=== PATIENT | female | born 1950 | race Caucasian/White ===

== ENCOUNTER 2022-03-20 01:15 | Inpatient (IN) | payer MEDICARE ==
[~2022-03-20] VITALS: Ht 158.8 cm; Wt 55.8 kg
[2022-03-20] MEDS ORDERED: REMEDY ESSENTIAL ZINC PASTE 113 GM TOP PRN (01:45)
[2022-03-20 02:04] VITALS: BP 132/67
[2022-03-20] MEDS ORDERED: ASPI81TA31 PO (02:31)
[2022-03-20] MEDS ORDERED: LEVO112T5 PO (02:31)
[2022-03-20] MEDS ORDERED: PRAM0.253 PO (02:31)
[2022-03-20] MEDS ORDERED: ZONI100C31 PO (02:31)
[2022-03-20] MEDS ORDERED: GABA-532 PO ×2 (02:31)
[2022-03-20] MEDS ORDERED: MINO100T PO (02:31)
[2022-03-20] MEDS ORDERED: GABA600T12 PO (02:31)
[2022-03-20] MEDS ORDERED: CYCL5TAB PO (02:31)
[2022-03-20] MEDS ORDERED: NEBI5TAB8 PO (02:31)
[2022-03-20] MEDS ORDERED: UMEC1BLS IH (02:31)
[2022-03-20] MEDS ORDERED: ALBU8.5H8 INH (02:31)
[2022-03-20] MEDS ORDERED: ACET-2154 PO (02:31)
[2022-03-20] MEDS ORDERED: POLY17PO4 PO (02:31)
[2022-03-20] MEDS ORDERED: MIRT-93 PO (02:31)
[2022-03-20] MEDS ORDERED: OXCA600T5 PO (02:31)
--- NOTE | 2022-03-20 04:11 | NUR ---
Admitted a 71 yr old female from [facility] with an admitting diagnosis of S/P left total knee arthroplasty (03/19/22) by Dr Garcia. AAOx4 Hx of osteoarthritis left knee, falls, COPD, HTN All needs attended. VSS. No acute distress noted. On 2L via nasal cannula, pulse ox 97%. Skin intact. Left knee dressing with britany wrap clean dry and intact with a left knee immobilizer. (+) good capillary refill toes warm to touch. Patient NWB on LLE x12 weeks. Denies any pain nor any discomfort. Thomas catheter intact draining yellow urine secondary to urinary retention. BM (03/17) Will monitor patient. Dr Seymour aware of patient's admission. Dr Anisha Chua also made aware of patient's admission for rehab. Fall precautions maintained. Call arellano within reach.
[2022-03-20 04:20] VITALS: BP 136/65
--- NOTE | 2022-03-20 06:13 | NUR ---
LLE with wound vac in placed, no drainage noted. Slept well throughout the night.
[2022-03-20] MEDS: OXYCODONE HCL 5 MG TABLET PO PRN (07:29)
[2022-03-20] MEDS ORDERED: NALOXONE HCL 0.4 MG/ML AMPUL IV PRN (07:30)
[2022-03-20 07:56] VITALS: BP 140/61
[2022-03-20] MEDS ORDERED: ALBUTEROL SULFATE 8 GM HFA.AER.AD INH PRN (08:00)
[2022-03-20] MEDS ORDERED: ALBUTEROL SULFATE 2.5 MG/3 ML NEBU NEB PRN (08:00)
[2022-03-20] MEDS ORDERED: CYCLOBENZAPRINE HCL 10 MG TABLET PO PRN (08:00)
[2022-03-20] MEDS ORDERED: UMECLIDINIUM XX SCH (08:15)
[2022-03-20] MEDS ORDERED: VILANTEROL XX SCH (08:15)
[2022-03-20] MEDS ORDERED: MINOCYCLINE PO SCH (09:00)
[2022-03-20] MEDS ORDERED: GABAPENTIN 300 MG CAPSULE PO SCH (09:00)
[2022-03-20] MEDS: OXCARBAZEPINE 300 MG TABLET PO SCH ×2 (09:39→17:36)
[2022-03-20] MEDS: MIRALAX 17 GM POWD.PACK PO SCH (09:40)
[2022-03-20] MEDS: ZONISAMIDE 100 MG CAPSULE PO SCH ×2 (11:16→17:36)
[2022-03-20] MEDS: ACETAMINOPHEN 325 MG TABLET PO SCH ×2 (13:16→22:00)
[2022-03-20] MEDS: OXYCODONE HCL 10 MG TAB.SR.12H PO SCH ×2 (13:16→22:00)
[2022-03-20] MEDS: GABAPENTIN 300 MG CAPSULE PO SCH ×2 (13:17→21:00)
[2022-03-20] MEDS: LEVOTHYROXINE SODIUM 112 MCG TABLET PO SCH (13:25)
--- NOTE | 2022-03-20 14:05 | NUR ---
INTERDISCIPLINARY TEAM CONFERENCE
[2022-03-20 16:25] VITALS: BP 145/84
[2022-03-20] MEDS: METOPROLOL TARTRATE 25 MG TABLET PO SCH (17:37)
[2022-03-20] MEDS: DOXYCYCLINE HYCLATE 100 MG TABLET PO SCH ×2 (17:55→22:00)
--- NOTE | 2022-03-20 18:57 | NUR ---
wound vac is in place. pain is well managed with pain medication, left knee dressing is intact. no acute distress noted
[2022-03-20 20:00] VITALS: BP 128/64
[2022-03-20] MEDS: PRAMIPEXOLE 0.25 MG TABLET PO SCH (21:00)
[2022-03-20] MEDS: ASPIRIN 81 MG TAB.CHEW PO SCH (21:00)
[2022-03-20] MEDS: MIRTAZAPINE 15 MG TABLET PO SCH (21:00)
[2022-03-21] MEDS: OXYCODONE HCL 5 MG TABLET PO PRN (01:52)
[2022-03-21 04:57] VITALS: BP 134/69
--- NOTE | 2022-03-21 06:00 | NUR ---
--PT IS A/OX4 WITH STABLE VS. PT HAS LEFT KNEE IMMOBILIZER INTACT WITH WOUND-VAC INTACT. PT C/O LEFT KNEE PAIN ALSO AT APPROX 0200. PT STATES RELIEF AFTER MED. 02 ON AT 2L/NC. PT VOIDING WELL AND HAD STOOLX1-PT IS ALSO INCONT. AM CARE GIVEN. PT ENDORSED TO PAYAM MULLER IN STABLED COND. JOS MULLER
[2022-03-21] MEDS: LEVOTHYROXINE SODIUM 112 MCG TABLET PO SCH (06:37)
[2022-03-21] MEDS: ACETAMINOPHEN 325 MG TABLET PO SCH ×3 (06:37→21:00)
[2022-03-21] MEDS: OXYCODONE HCL 10 MG TAB.SR.12H PO SCH ×3 (06:55→21:00)
[2022-03-21 07:01] LABS: HEMATOCRIT 33.8 % (31.2-41.9); MEAN CORPUSCULAR HEMOGLOBIN 28.3 uug (24.7-32.8); MEAN CORPUSCULAR VOLUME 87.6 fL (75.5-95.3); PLATELET COUNT (AUTO) 218 K/uL (179-408)
[2022-03-21 07:32] LABS: THYROID STIMULATING HORMONE 2.39 mIU/mL (0.358-3.740)
[2022-03-21 07:36] LABS: CREATININE 1.1 mg/dL (0.6-1.3); MAGNESIUM 1.8 mg/dL (1.8-2.4); PHOSPHOROUS 4.6 mg/dL (2.5-4.9); POTASSIUM 4.3 mmol/L (3.5-5.1)
[2022-03-21 07:44] VITALS: BP 125/60
[2022-03-21] MEDS: MIRALAX 17 GM POWD.PACK PO SCH (08:11)
[2022-03-21] MEDS: GABAPENTIN 300 MG CAPSULE PO SCH ×3 (08:11→20:03)
[2022-03-21] MEDS: ASPIRIN 81 MG TAB.CHEW PO SCH ×2 (08:11→20:02)
[2022-03-21] MEDS: ZONISAMIDE 100 MG CAPSULE PO SCH ×2 (08:11→16:08)
[2022-03-21] MEDS: DOXYCYCLINE HYCLATE 100 MG TABLET PO SCH ×2 (08:11→20:03)
[2022-03-21] MEDS: METOPROLOL TARTRATE 25 MG TABLET PO SCH ×2 (08:11→16:08)
[2022-03-21] MEDS: OXCARBAZEPINE 300 MG TABLET PO SCH ×2 (08:18→17:14)
--- NOTE | 2022-03-21 11:09 | NUR ---
WOUND CARE CONSULT: PT SEEN FOR SKIN ASSESSMENT AND NOTED TO HAVE LEFT LOWER LEG IMMOBILIZER WITH KARIE WRAPS AND SURGICAL DRESSINGS WELL PREVENA INCISIONAL WOUND VAC (NO DRAINAGE NOTED IN CANISTER), ALL PRESENT ON ADMISSION. RECOMMEND SURGICAL CONSULT. DR SANFORD NOTIFIED. PT STATES HAS APPT WITH HER SURGEON, DR GUDINO ON FRIDAY. DISCUSSED WITH SUPPLY CHAIN VICE PRESIDENT AND MSG LEFT FOR ADMINISTRATOR SOCIAL WELFAREGUSTABO HOLDER.
[2022-03-21 15:06] VITALS: BP 145/70
[2022-03-21 20:00] VITALS: BP 92/60
[2022-03-21] MEDS: PRAMIPEXOLE 0.25 MG TABLET PO SCH (20:03)
[2022-03-21] MEDS: MIRTAZAPINE 15 MG TABLET PO SCH (20:03)
[2022-03-21 20:44] VITALS: BP 105/65
[2022-03-22 04:00] VITALS: BP 152/70
[2022-03-22] MEDS: OXYCODONE HCL 10 MG TAB.SR.12H PO SCH ×3 (05:03→20:18)
[2022-03-22] MEDS: ACETAMINOPHEN 325 MG TABLET PO SCH ×3 (05:03→21:07)
[2022-03-22] MEDS: LEVOTHYROXINE SODIUM 112 MCG TABLET PO SCH (06:03)
[2022-03-22 07:37] VITALS: BP 143/71
[2022-03-22] MEDS: ZONISAMIDE 100 MG CAPSULE PO SCH ×2 (08:31→17:37)
[2022-03-22] MEDS: MIRALAX 17 GM POWD.PACK PO SCH (08:32)
[2022-03-22] MEDS: GABAPENTIN 300 MG CAPSULE PO SCH ×3 (08:32→20:17)
[2022-03-22] MEDS: DOXYCYCLINE HYCLATE 100 MG TABLET PO SCH ×2 (08:32→20:47)
[2022-03-22] MEDS: ASPIRIN 81 MG TAB.CHEW PO SCH ×2 (08:32→20:17)
[2022-03-22] MEDS: METOPROLOL TARTRATE 25 MG TABLET PO SCH ×2 (08:34→17:35)
[2022-03-22] MEDS: OXCARBAZEPINE 300 MG TABLET PO SCH ×2 (08:36→17:37)
[2022-03-22] MEDS: OXYCODONE HCL 5 MG TABLET PO PRN (09:21)
[2022-03-22] MEDS ORDERED: NALOXONE HCL 0.4 MG/ML AMPUL IV PRN (15:00)
[2022-03-22 15:13] VITALS: BP 106/61
[2022-03-22 20:00] VITALS: BP 141/62
[2022-03-22] MEDS: PRAMIPEXOLE 0.25 MG TABLET PO SCH (20:18)
[2022-03-22] MEDS: MIRTAZAPINE 15 MG TABLET PO SCH (20:18)
--- NOTE | 2022-03-23 03:50 | NUR ---
Awake alert and oriented x4 All needs attended. Patient had a left total knee revision where dressing clean dry and intact. Patient with wound vac intact, no drainage noted, scant amount noted on the canister. VSS. Tolerated po meds well. Kept comfortable. Siderails up for safety. Left knee dressing clean dry and intact. Incontinent of bowel and bladder. Kept clean and dry. Fall precautions maintained.
[2022-03-23 04:00] VITALS: BP 166/80
[2022-03-23] MEDS: ACETAMINOPHEN 325 MG TABLET PO SCH ×3 (05:13→21:20)
[2022-03-23] MEDS: LEVOTHYROXINE SODIUM 112 MCG TABLET PO SCH (06:20)
[2022-03-23] MEDS: DOXYCYCLINE HYCLATE 100 MG TABLET PO SCH ×2 (08:20→20:23)
[2022-03-23] MEDS: OXYCODONE HCL 10 MG TAB.SR.12H PO SCH ×2 (08:20→20:24)
[2022-03-23] MEDS: ZONISAMIDE 100 MG CAPSULE PO SCH ×2 (08:20→16:25)
[2022-03-23] MEDS: GABAPENTIN 300 MG CAPSULE PO SCH ×3 (08:20→20:24)
[2022-03-23] MEDS: ASPIRIN 81 MG TAB.CHEW PO SCH ×2 (08:20→20:23)
[2022-03-23] MEDS: METOPROLOL TARTRATE 25 MG TABLET PO SCH ×2 (08:24→16:25)
[2022-03-23] MEDS: FLUTICASONE/VILANTEROL 1 EACH BLST.W.DEV INH SCH (08:25)
[2022-03-23] MEDS: MIRALAX 17 GM POWD.PACK PO SCH (08:25)
[2022-03-23] MEDS: OXCARBAZEPINE 300 MG TABLET PO SCH ×2 (08:25→16:28)
[2022-03-23 08:30] VITALS: BP 155/81
--- NOTE | 2022-03-23 10:16 | NUR ---
INDIVIDUALIZED PLAN OF CARE
[2022-03-23 15:05] VITALS: BP 158/78
[2022-03-23] MEDS: ENSURE ENLIVE (VAN) 240 ML LIQUID PO SCH (16:26)
[2022-03-23] MEDS: ARGININE/GLUTAMINE/CALCIUM BMB 1 EACH POWD.PACK PO SCH (16:26)
[2022-03-23 20:00] VITALS: BP 138/67
[2022-03-23] MEDS: PRAMIPEXOLE 0.25 MG TABLET PO SCH (20:23)
[2022-03-23] MEDS: MIRTAZAPINE 15 MG TABLET PO SCH (20:24)
--- NOTE | 2022-03-24 03:54 | NUR ---
Condition unchanged. AAOx4 Needs attended. VSS Left knee dressing intact with a knee immobilizer with wound vac noted. No acute distress noted. Will monitor patient. Fall precautions maintained. Siderails up for safety.
[2022-03-24 04:00] VITALS: BP 164/85
[2022-03-24] MEDS: ACETAMINOPHEN 325 MG TABLET PO SCH ×3 (05:30→21:59)
[2022-03-24] MEDS: LEVOTHYROXINE SODIUM 112 MCG TABLET PO SCH (06:08)
[2022-03-24 08:00] VITALS: BP 160/76
[2022-03-24] MEDS: OXYCODONE HCL 10 MG TAB.SR.12H PO SCH ×3 (08:14→22:00)
[2022-03-24] MEDS: ASPIRIN 81 MG TAB.CHEW PO SCH ×2 (08:34→21:59)
[2022-03-24] MEDS: GABAPENTIN 300 MG CAPSULE PO SCH ×3 (08:34→22:07)
[2022-03-24] MEDS: DOXYCYCLINE HYCLATE 100 MG TABLET PO SCH ×2 (08:35→21:59)
[2022-03-24] MEDS: OXCARBAZEPINE 300 MG TABLET PO SCH ×2 (08:35→16:18)
[2022-03-24] MEDS: ZONISAMIDE 100 MG CAPSULE PO SCH ×2 (08:35→16:18)
[2022-03-24] MEDS: METOPROLOL TARTRATE 25 MG TABLET PO SCH ×2 (08:36→16:18)
[2022-03-24] MEDS: ENSURE ENLIVE (VAN) 240 ML LIQUID PO SCH ×2 (08:36→17:09)
[2022-03-24] MEDS: ARGININE/GLUTAMINE/CALCIUM BMB 1 EACH POWD.PACK PO SCH ×2 (08:36→17:09)
[2022-03-24] MEDS: FLUTICASONE/VILANTEROL 1 EACH BLST.W.DEV INH SCH (08:42)
[2022-03-24] MEDS: MIRALAX 17 GM POWD.PACK PO SCH (08:43)
[2022-03-24] MEDS: OXYCODONE HCL 5 MG TABLET PO PRN (14:02)
[2022-03-24 15:55] VITALS: BP 121/68
[2022-03-24 20:00] VITALS: BP 119/72
[2022-03-24] MEDS: MIRTAZAPINE 15 MG TABLET PO SCH (21:59)
[2022-03-24] MEDS: PRAMIPEXOLE 0.25 MG TABLET PO SCH (21:59)
[2022-03-25 04:00] VITALS: BP 125/70
--- NOTE | 2022-03-25 06:00 | NUR ---
--PT CONT WITH STABLE VS. PT HAS BEEN SLEEPING OFF AND ON. PT HAS BEEN A/OX4. PT HAS LEFT KNEE BRACE INTACT WITH WOUND-VAC. GEN COND HAS BEEN STABLE. PT DENIES ANY PAIN THIS AM. PT ENDORSED TO YOHANA BARCENAS. JOS MULLER
[2022-03-25] MEDS: LEVOTHYROXINE SODIUM 112 MCG TABLET PO SCH ×2 (06:34→08:36)
[2022-03-25] MEDS: ACETAMINOPHEN 325 MG TABLET PO SCH ×3 (06:34→22:02)
[2022-03-25 07:58] VITALS: BP 139/71
[2022-03-25] MEDS: ASPIRIN 81 MG TAB.CHEW PO SCH ×2 (08:35→20:46)
[2022-03-25] MEDS: ZONISAMIDE 100 MG CAPSULE PO SCH ×2 (08:36→17:15)
[2022-03-25] MEDS: DOXYCYCLINE HYCLATE 100 MG TABLET PO SCH ×2 (08:36→21:04)
[2022-03-25] MEDS: GABAPENTIN 300 MG CAPSULE PO SCH ×3 (08:37→20:52)
[2022-03-25] MEDS: OXYCODONE HCL 10 MG TAB.SR.12H PO SCH ×2 (08:46→20:55)
[2022-03-25] MEDS: OXCARBAZEPINE 300 MG TABLET PO SCH ×2 (08:47→17:15)
[2022-03-25] MEDS: ENSURE ENLIVE (VAN) 240 ML LIQUID PO SCH ×2 (08:51→17:16)
[2022-03-25] MEDS: ARGININE/GLUTAMINE/CALCIUM BMB 1 EACH POWD.PACK PO SCH ×2 (08:53→17:17)
[2022-03-25] MEDS: MIRALAX 17 GM POWD.PACK PO SCH (08:53)
[2022-03-25] MEDS: FLUTICASONE/VILANTEROL 1 EACH BLST.W.DEV INH SCH (08:53)
[2022-03-25] MEDS: METOPROLOL TARTRATE 25 MG TABLET PO SCH ×2 (09:00→17:23)
--- NOTE | 2022-03-25 13:57 | NUR ---
71 year old female. She is alert and oriented x4, verbal and able to make her needs known. No apparent distress. She is cooperative with limitation of movement. Patient came in for weakness s/p knee revision. On 03/18/22 patient had a total knee replacement. She is full code on 2 gram sodium. Patient is incontinence. Skin is intact and she is able to ambulate with PT. Pills are being taken whole at times mixed with apple sauce. She did refuse to take her oxycontin, requsted for Tylenol instead. Patient has appointment scheduled for tomorrow.No new concerns reported. Will continue to monitor.
[2022-03-25 16:07] VITALS: BP 144/77
[2022-03-25 20:00] VITALS: BP 116/64
[2022-03-25] MEDS: PRAMIPEXOLE 0.25 MG TABLET PO SCH (20:52)
[2022-03-25] MEDS: MIRTAZAPINE 15 MG TABLET PO SCH (20:53)
[2022-03-26 04:00] VITALS: BP 105/69
[2022-03-26] MEDS: ACETAMINOPHEN 325 MG TABLET PO SCH ×3 (06:00→21:39)
[2022-03-26 08:00] VITALS: BP 105/63
[2022-03-26] MEDS: ENSURE ENLIVE (VAN) 240 ML LIQUID PO SCH ×2 (08:06→17:48)
[2022-03-26] MEDS: ZONISAMIDE 100 MG CAPSULE PO SCH ×2 (08:27→17:29)
[2022-03-26] MEDS: ASPIRIN 81 MG TAB.CHEW PO SCH ×2 (08:27→20:25)
[2022-03-26] MEDS: DOXYCYCLINE HYCLATE 100 MG TABLET PO SCH ×2 (08:28→20:25)
[2022-03-26] MEDS: GABAPENTIN 300 MG CAPSULE PO SCH ×3 (08:28→20:25)
[2022-03-26] MEDS: METOPROLOL TARTRATE 25 MG TABLET PO SCH ×2 (08:28→17:34)
[2022-03-26] MEDS: OXCARBAZEPINE 300 MG TABLET PO SCH ×2 (08:28→17:34)
[2022-03-26] MEDS: OXYCODONE HCL 10 MG TAB.SR.12H PO SCH (08:33)
--- NOTE | 2022-03-26 08:35 | NUR ---
MICHELLE RN & CHARLY RN GAVE PATIENT HER ROUTINE & SCHEDULED MEDICATIONS PER DOCTOR'S ORDER. PT. REFUSED OXYCONTIN SHE WANTED TO BE MORE ALERT FOR HER DOCTOR'S APPOINTMENT TODAY. EMT/AMBULANCE PICKED UP PATIENT & TOOK HER TO HER FOLLOW-UP VISIT WITH HER DOCTOR. PT. LEFT IN STABLE CONDITION. REPORT GIVEN TO EMT.
[2022-03-26] MEDS: MIRALAX 17 GM POWD.PACK PO SCH (09:00)
[2022-03-26] MEDS: ARGININE/GLUTAMINE/CALCIUM BMB 1 EACH POWD.PACK PO SCH ×2 (09:07→17:48)
[2022-03-26] MEDS: FLUTICASONE/VILANTEROL 1 EACH BLST.W.DEV INH SCH (09:27)
--- NOTE | 2022-03-26 11:10 | NUR ---
PATIENT RETURNED BACK TO ROOM. PT. IN STABLE CONDITION. PT WILL CONTINUE PLAN OF CARE.
[2022-03-26] MEDS: OXYCODONE HCL 5 MG TABLET PO PRN ×2 (13:46→20:41)
--- NOTE | 2022-03-26 19:28 | NUR ---
REPORT GIVEN TO TILE DECORATOR RN. RN PASSED DOWN DR. ADAMSON'S REQUESTS AND PRESCRIPTION PLAN LEFT IN PATIENT CHART. PER DR. ADAMSON'S: HE WOULD LIKE: DAILY DRESSING CHANGES, WEIGHT BEARING TOLERATED, CONTINUE PT PLAN SCHEDULED, AND REQUEST THAT CLIENT RETURN BACK TO CLINIC WITHIN 2 WEEKS WITH NEW X-RAYS. PLAN PASSED DOWN TO TILE DECORATOR RN.
[2022-03-26 20:00] VITALS: BP 116/58
[2022-03-26] MEDS: PRAMIPEXOLE 0.25 MG TABLET PO SCH (20:24)
[2022-03-26] MEDS: MIRTAZAPINE 15 MG TABLET PO SCH (20:25)
[2022-03-26] MEDS: REMEDY ESSENTIAL ZINC PASTE 113 GM TOP SCH (20:28)
--- NOTE | 2022-03-27 03:59 | NUR ---
AAOx4 All needs attended. VSS No acute distress noted. Fall precautions maintained. Siderails up for safety. Denies any pain nor any discomfort. Left knee dressing clean dry and intact. Left leg immobilizer intact. Wound vac d/c'ed. Kept comfortable.
[2022-03-27 04:00] VITALS: BP 124/62
[2022-03-27] MEDS: OXYCODONE HCL 5 MG TABLET PO PRN ×3 (04:14→20:30)
[2022-03-27] MEDS: ACETAMINOPHEN 325 MG TABLET PO SCH ×3 (05:24→21:06)
[2022-03-27] MEDS: LEVOTHYROXINE SODIUM 112 MCG TABLET PO SCH (06:02)
[2022-03-27 08:00] VITALS: BP 121/69
[2022-03-27] MEDS: ASPIRIN 81 MG TAB.CHEW PO SCH ×2 (08:37→20:24)
[2022-03-27] MEDS: ENSURE ENLIVE (VAN) 240 ML LIQUID PO SCH ×2 (08:37→17:39)
[2022-03-27] MEDS: GABAPENTIN 300 MG CAPSULE PO SCH ×3 (08:38→20:24)
[2022-03-27] MEDS: METOPROLOL TARTRATE 25 MG TABLET PO SCH ×2 (08:38→16:36)
[2022-03-27] MEDS: DOXYCYCLINE HYCLATE 100 MG TABLET PO SCH ×2 (08:38→20:30)
[2022-03-27] MEDS: OXCARBAZEPINE 300 MG TABLET PO SCH ×2 (08:39→17:39)
[2022-03-27] MEDS: MIRALAX 17 GM POWD.PACK PO SCH (08:39)
[2022-03-27] MEDS: FLUTICASONE/VILANTEROL 1 EACH BLST.W.DEV INH SCH (08:41)
[2022-03-27] MEDS: REMEDY ESSENTIAL ZINC PASTE 113 GM TOP SCH ×2 (09:18→20:26)
[2022-03-27] MEDS: ZONISAMIDE 100 MG CAPSULE PO SCH ×2 (09:18→16:34)
[2022-03-27] MEDS: ARGININE/GLUTAMINE/CALCIUM BMB 1 EACH POWD.PACK PO SCH ×2 (09:19→17:39)
--- NOTE | 2022-03-27 14:40 | NUR ---
INDIVIDUALIZED PLAN OF CARE
--- NOTE | 2022-03-27 14:44 | NUR ---
0730-Rec'd patient in bed, awake, alert and verbally communicative, denies any discomfort at this time; no respiratory distress noted. Patient in stable conditions, no seizure episodes noted. All safety measures in place and call light within reach. 0900-Patient still eating at this time, no swallowing problems noted. Scheduled/due medications administered as ordered with no ASE, oral fluids taken well. 1100-Patient brought to my attention her dentures are missing since three days ago and that a search was conducted but unsuccessful at finding them. Patient requested to speak to SW to report her missing dentures., Looked for dentures but unable to locate them., Spoke to SW (Estela) and immediately came to address patient's concerns regarding her dentures. 14:00-Patient OOB, picked up by rehab persennel and taken to therapy.
--- NOTE | 2022-03-27 14:46 | NUR ---
Clinical SW Note: Pt verbalized to this technical report writer that she woke up the morning of Friday and found that her bottom dentures are missing from the box. Pt reported that she placed them in the box the night before. Pt stated she advised nursing, the cleaning crew and a knitting supervisor. This SW reported pt's statement to the pt's nurse today, Sasha, the nursing knitting supervisor, Harmony and corrections caseworker Kaushal. Staff is advised and will continue to follow-up with pt. Kaushal stated he will speak to the pt and follow-up. Pt is informed.
--- NOTE | 2022-03-27 15:07 | NUR ---
INTERDISCIPLINARY TEAM CONFERENCE
[2022-03-27 16:00] VITALS: BP 130/60
[2022-03-27 20:00] VITALS: BP 129/67
[2022-03-27] MEDS: PRAMIPEXOLE 0.25 MG TABLET PO SCH (20:23)
[2022-03-27] MEDS: MIRTAZAPINE 15 MG TABLET PO SCH (20:24)
[2022-03-28 04:00] VITALS: BP 116/56
--- NOTE | 2022-03-28 04:24 | NUR ---
awake alert and oriented x4 All needs attended. VSS No acute distress noted. Tolerated all po meds. Medicated for pain with relief noted. Incontinent of bowel and bladder. Kept clean and dry. Will monitor patient.
[2022-03-28] MEDS: ACETAMINOPHEN 325 MG TABLET PO SCH ×3 (05:26→22:01)
[2022-03-28] MEDS: LEVOTHYROXINE SODIUM 112 MCG TABLET PO SCH (06:12)
[2022-03-28 07:51] VITALS: BP 97/63
[2022-03-28] MEDS: DOXYCYCLINE HYCLATE 100 MG TABLET PO SCH ×2 (08:34→21:13)
[2022-03-28] MEDS: ZONISAMIDE 100 MG CAPSULE PO SCH ×2 (08:35→16:33)
[2022-03-28] MEDS: METOPROLOL TARTRATE 25 MG TABLET PO SCH ×2 (08:35→08:38)
[2022-03-28] MEDS: MIRALAX 17 GM POWD.PACK PO SCH (08:36)
[2022-03-28] MEDS: ENSURE ENLIVE (VAN) 240 ML LIQUID PO SCH ×2 (08:36→17:04)
[2022-03-28] MEDS: GABAPENTIN 300 MG CAPSULE PO SCH ×3 (08:36→21:12)
[2022-03-28] MEDS: ASPIRIN 81 MG TAB.CHEW PO SCH ×2 (08:36→21:13)
[2022-03-28] MEDS: ARGININE/GLUTAMINE/CALCIUM BMB 1 EACH POWD.PACK PO SCH ×2 (08:37→17:05)
[2022-03-28] MEDS: FLUTICASONE/VILANTEROL 1 EACH BLST.W.DEV INH SCH (08:37)
[2022-03-28] MEDS: OXCARBAZEPINE 300 MG TABLET PO SCH ×2 (09:06→16:41)
[2022-03-28] MEDS: REMEDY ESSENTIAL ZINC PASTE 113 GM TOP SCH ×2 (09:07→21:14)
[2022-03-28] MEDS: OXYCODONE HCL 5 MG TABLET PO PRN (10:02)
--- NOTE | 2022-03-28 11:48 | NUR ---
WOUND CARE FOLLOW UP: PT SEEN FOR EVALUATION OF LEFT LEG INCISION AND OPEN AREA TO LEFT KNEE, PRESENT ON ADMISSION. PT PREVIOUSLY HAD NONREMOVABLE INCISIONAL PREVENA WOUND VAC. VAC WAS DISCONTINUED BY ORTHO SURGEON ON 03/26. THERE IS OPEN AREA TO LEFT KNEE WHICH MEASURES 8CM X5CM X UTD DEPTH WHICH IS RED/PINK WITH AREA OF BROWN NECROTIC TISSUE, NO ODOR. RECOMMEND CONTINUE TO PROTECT WITH XEROFORM DSG AND PROTECT INCISIONS WITH ABD PADS AND KERLIX. KNEE IMMOBILIZER WAS PLACED BACK ON AFTER DRESSING CHANGE. RECOMMEND SURGICAL FOLLOW UP. IN AGREEMENT WITH PLAN OF CARE.
[2022-03-28 15:30] VITALS: BP 124/63
--- NOTE | 2022-03-28 17:39 | NUR ---
Obtained orders from Dr. Elina Jaimes to upgrade diet from 2GM sodium to regular diet, dietary/kitchen aware.
--- NOTE | 2022-03-28 17:49 | NUR ---
Followed up on orders given post op Appt with Dr. Garcia on 03/26/[address] Garcia @ 0900 APA pick up attendant @ 8:15AM. [id number] [address] PH: and as follows: -Daily dressing changes to left hip surgery site. -WBAT with LLE -Cont with PT services -RTC 2 weeks with new x-rays of left hip. All of the above carried out, except X-Rays due to pending clarification of specific date follow up apt.
--- NOTE | 2022-03-28 18:37 | NUR ---
1700-METOPROLOL TARTRATE 25MG, NOT ADMINISTERED DUE TO LOW BLOOD PRESSURE. BP96/55, P61.
[2022-03-28 20:00] VITALS: BP_SYST 104; BP_SYST 128; BP_DIAS 55; BP_DIAS 63
[2022-03-28] MEDS: MIRTAZAPINE 15 MG TABLET PO SCH (21:13)
[2022-03-28] MEDS: PRAMIPEXOLE 0.25 MG TABLET PO SCH (21:14)
[2022-03-29] MEDS: OXYCODONE HCL 5 MG TABLET PO PRN ×4 (03:09→23:20)
[2022-03-29 04:00] VITALS: BP 120/67
[2022-03-29] MEDS: LEVOTHYROXINE SODIUM 112 MCG TABLET PO SCH ×2 (06:00→09:12)
[2022-03-29] MEDS: ACETAMINOPHEN 325 MG TABLET PO SCH ×3 (06:00→22:05)
[2022-03-29 08:08] VITALS: BP 142/69
[2022-03-29] MEDS: OXCARBAZEPINE 300 MG TABLET PO SCH ×2 (09:10→16:45)
[2022-03-29] MEDS: MIRALAX 17 GM POWD.PACK PO SCH (09:10)
[2022-03-29] MEDS: ASPIRIN 81 MG TAB.CHEW PO SCH ×2 (09:11→21:00)
[2022-03-29] MEDS: ZONISAMIDE 100 MG CAPSULE PO SCH ×2 (09:11→16:42)
[2022-03-29] MEDS: GABAPENTIN 300 MG CAPSULE PO SCH ×3 (09:12→21:00)
[2022-03-29] MEDS: REMEDY ESSENTIAL ZINC PASTE 113 GM TOP SCH ×2 (09:13→21:00)
[2022-03-29] MEDS: ARGININE/GLUTAMINE/CALCIUM BMB 1 EACH POWD.PACK PO SCH ×2 (09:13→16:42)
[2022-03-29] MEDS: FLUTICASONE/VILANTEROL 1 EACH BLST.W.DEV INH SCH (09:14)
[2022-03-29] MEDS: ENSURE ENLIVE (VAN) 240 ML LIQUID PO SCH (09:14)
[2022-03-29] MEDS: METOPROLOL TARTRATE 25 MG TABLET PO SCH ×2 (09:15→16:44)
[2022-03-29] MEDS: DOXYCYCLINE HYCLATE 100 MG TABLET PO SCH ×2 (09:25→21:00)
[2022-03-29 14:59] VITALS: BP 127/66
--- NOTE | 2022-03-29 15:13 | NUR ---
Received patient comfortably awake in hospital bed. She is lying in supine position with HOB 35 degrees angle. She is A&O x4, verbal, able to make needs known. As of during the Am pain was denied. Normal air movement with no apparent distress noted. She is calm and relaxed at this time. Dressing on left leg changed. patient tolerated well with minimal discomfort. Patient is full code on regular diet. She came in for S/P left total Knee Arthroplasty. Patient later did complain of pain. Oxycotin given with relief. She was able to walk with PT twice today. No new concerns reported. Sn will continue to monitor patient on same plan of care.
[2022-03-29 19:55] VITALS: BP 121/65
[2022-03-29] MEDS: MIRTAZAPINE 15 MG TABLET PO SCH (21:00)
[2022-03-29] MEDS: PRAMIPEXOLE 0.25 MG TABLET PO SCH (21:00)
[2022-03-30 04:00] VITALS: BP 118/69
[2022-03-30] MEDS: ACETAMINOPHEN 325 MG TABLET PO SCH ×3 (06:00→21:42)
--- NOTE | 2022-03-30 06:00 | NUR ---
--PT REMAINS A/OX4. VS CONT. TO BE STABLE. LEFT LEG DRSG IS D/I. PT VOIDING WELL VIA BEDPAN. PT REQUESTED PAIN MED X1. PT MED WITH OXY. PAIN MED-RATED PAIN AT 810. PT STATES RELIEF AFTER MED. GEN. COND. HAS BEEN STABLE. PT ENDORSED TO PAYAM ARGUELLO RN
[2022-03-30] MEDS: DOXYCYCLINE HYCLATE 100 MG TABLET PO SCH ×2 (08:33→20:34)
[2022-03-30] MEDS: ASPIRIN 81 MG TAB.CHEW PO SCH ×2 (08:33→20:34)
[2022-03-30] MEDS: GABAPENTIN 300 MG CAPSULE PO SCH ×3 (08:36→20:34)
[2022-03-30] MEDS: FLUTICASONE/VILANTEROL 1 EACH BLST.W.DEV INH SCH (08:36)
[2022-03-30] MEDS: OXCARBAZEPINE 300 MG TABLET PO SCH ×2 (08:37→17:10)
[2022-03-30] MEDS: REMEDY ESSENTIAL ZINC PASTE 113 GM TOP SCH ×2 (08:38→20:35)
[2022-03-30] MEDS: METOPROLOL TARTRATE 25 MG TABLET PO SCH ×2 (08:38→17:05)
[2022-03-30] MEDS: ENSURE ENLIVE (VAN) 240 ML LIQUID PO SCH (08:39)
[2022-03-30] MEDS: ARGININE/GLUTAMINE/CALCIUM BMB 1 EACH POWD.PACK PO SCH ×2 (08:39→17:05)
[2022-03-30 08:41] VITALS: BP 127/63
[2022-03-30] MEDS: ZONISAMIDE 100 MG CAPSULE PO SCH ×2 (08:45→17:04)
[2022-03-30] MEDS: MIRALAX 17 GM POWD.PACK PO SCH (08:45)
[2022-03-30] MEDS: OXYCODONE HCL 5 MG TABLET PO PRN ×3 (08:56→20:33)
[2022-03-30 16:00] VITALS: BP 133/61
--- NOTE | 2022-03-30 17:20 | NUR ---
Patient is comfortable at this time. She is alert and oriented x4, verbal, able to make needs known. Patient has been complaining of pain, oxycotin and Tylenol given. She has able to take pills whole with no discomfort. Normal air movement with no apparent distress. Respiration are even unlabored. She uses the bedpan. No more wound vac. Dressing change, no discomfort. Walks with assist with the walker. All comfort measures and pain management attended to according. She is comfortable, will continue to monitor
[2022-03-30 20:30] VITALS: BP 117/62
[2022-03-30] MEDS: PRAMIPEXOLE 0.25 MG TABLET PO SCH (20:34)
[2022-03-30] MEDS: MIRTAZAPINE 15 MG TABLET PO SCH (20:34)
[2022-03-31] MEDS: OXYCODONE HCL 5 MG TABLET PO PRN ×3 (01:55→20:58)
[2022-03-31 04:40] VITALS: BP 129/60
[2022-03-31] MEDS: ACETAMINOPHEN 325 MG TABLET PO SCH ×3 (05:45→21:10)
[2022-03-31] MEDS: LEVOTHYROXINE SODIUM 112 MCG TABLET PO SCH (06:06)
[2022-03-31 08:00] VITALS: BP 117/57
[2022-03-31] MEDS: DOXYCYCLINE HYCLATE 100 MG TABLET PO SCH ×2 (09:40→20:56)
[2022-03-31] MEDS: ZONISAMIDE 100 MG CAPSULE PO SCH ×2 (09:40→17:08)
[2022-03-31] MEDS: ASPIRIN 81 MG TAB.CHEW PO SCH ×2 (09:40→20:56)
[2022-03-31] MEDS: MIRALAX 17 GM POWD.PACK PO SCH (09:40)
[2022-03-31] MEDS: OXCARBAZEPINE 300 MG TABLET PO SCH ×2 (09:40→17:09)
[2022-03-31] MEDS: METOPROLOL TARTRATE 25 MG TABLET PO SCH ×2 (09:40→17:09)
[2022-03-31] MEDS: FLUTICASONE/VILANTEROL 1 EACH BLST.W.DEV INH SCH (09:41)
[2022-03-31] MEDS: ARGININE/GLUTAMINE/CALCIUM BMB 1 EACH POWD.PACK PO SCH ×2 (09:41→17:09)
[2022-03-31] MEDS: REMEDY ESSENTIAL ZINC PASTE 113 GM TOP SCH ×2 (09:41→21:06)
[2022-03-31] MEDS: ENSURE ENLIVE (VAN) 240 ML LIQUID PO SCH (09:41)
[2022-03-31] MEDS: GABAPENTIN 300 MG CAPSULE PO SCH ×3 (09:51→20:57)
[2022-03-31 15:42] VITALS: BP 132/71
--- NOTE | 2022-03-31 17:38 | NUR ---
spoke with communication center operator at md burks's office want to send pics of the leg noted with tissue sloughing and not healing well. told me to call the office tomorrow and send pics then.
[2022-03-31 20:00] VITALS: BP 129/54
[2022-03-31] MEDS: PRAMIPEXOLE 0.25 MG TABLET PO SCH (20:56)
[2022-03-31] MEDS: MIRTAZAPINE 15 MG TABLET PO SCH (20:57)
[2022-04-01] VITALS: BP 120/64
[2022-04-01] MEDS: OXYCODONE HCL 5 MG TABLET PO PRN ×3 (02:29→20:45)
[2022-04-01 04:00] VITALS: BP 126/59
[2022-04-01] MEDS: ACETAMINOPHEN 325 MG TABLET PO SCH ×3 (05:58→22:10)
[2022-04-01] MEDS: LEVOTHYROXINE SODIUM 112 MCG TABLET PO SCH ×2 (06:14→08:37)
--- NOTE | 2022-04-01 07:16 | NUR ---
SHIFT NOTE: RECEIVED REPORT FROM AM NURSE SHARI SEND PICTURES TO DR. ADAMSON TO ASSESS LEG FOR WOUND HEALING AND SLOUGH. PT WAS GIVEN OXYIR 3 TIMES DURING SHIFT FOR LT LEG PAIN FROM WOUND NO SIGNS OF RESPIRATORY DISTRESS. PT TOLERATED MEDICATION WITHOUT ADVERSE REACTION. ALSO ASSISTED PATIENT TO RESTROOM TOLERATED WELL GAIT IS STEADY AN SLOW.
[2022-04-01 07:36] VITALS: BP 138/61
[2022-04-01] MEDS: ASPIRIN 81 MG TAB.CHEW PO SCH ×2 (08:36→20:43)
[2022-04-01] MEDS: DOXYCYCLINE HYCLATE 100 MG TABLET PO SCH ×2 (08:37→20:43)
[2022-04-01] MEDS: GABAPENTIN 300 MG CAPSULE PO SCH ×3 (08:37→20:43)
[2022-04-01] MEDS: ZONISAMIDE 100 MG CAPSULE PO SCH ×2 (08:37→17:09)
[2022-04-01] MEDS: OXCARBAZEPINE 300 MG TABLET PO SCH ×2 (08:38→17:01)
[2022-04-01] MEDS: MIRALAX 17 GM POWD.PACK PO SCH (08:38)
[2022-04-01] MEDS: METOPROLOL TARTRATE 25 MG TABLET PO SCH ×2 (08:38→17:07)
[2022-04-01] MEDS: ARGININE/GLUTAMINE/CALCIUM BMB 1 EACH POWD.PACK PO SCH ×2 (08:39→17:03)
[2022-04-01] MEDS: REMEDY ESSENTIAL ZINC PASTE 113 GM TOP SCH ×2 (08:39→20:43)
[2022-04-01] MEDS: FLUTICASONE/VILANTEROL 1 EACH BLST.W.DEV INH SCH (08:41)
[2022-04-01] MEDS: ENSURE ENLIVE (VAN) 240 ML LIQUID PO SCH (08:44)
[2022-04-01 16:33] VITALS: BP 127/66
--- NOTE | 2022-04-01 17:25 | NUR ---
Pt received awake in bed. She A&Ox4, verbal and able to make needs known. She is currently stable. She expressed pain on wound site. Pictures taken of wound, placed in patient chart. Patient has an appointment tomorrow @ 4pm with Dr. Garcia regarding follow up on wound. Tylenol given once during my shift and no Oxycotin given. Wound dressing changed, cleanse with N/S pat dry and applied dried gauze dressing and wrap. Patient tolerated well. No new concerns reported. She is breathing normal on room air with no apparent distress noted. Calm and relaxed. Sn will continue to monitor on same plan of care.
[2022-04-01] MEDS: MIRTAZAPINE 15 MG TABLET PO SCH (20:43)
[2022-04-01] MEDS: PRAMIPEXOLE 0.25 MG TABLET PO SCH (20:43)
[2022-04-02] MEDS: OXYCODONE HCL 5 MG TABLET PO PRN ×4 (02:00→20:49)
[2022-04-02 04:00] VITALS: BP 120/58
[2022-04-02] MEDS: LEVOTHYROXINE SODIUM 112 MCG TABLET PO SCH (06:38)
[2022-04-02] MEDS: ACETAMINOPHEN 325 MG TABLET PO SCH ×3 (06:38→21:12)
--- NOTE | 2022-04-02 07:23 | NUR ---
SHIFT NOTE; RECEIVED REPORT FROM AM NURSE NARINDER PT IS ALERT AND ORIENTED X4 DRESSING REMOVED BY NURSE APPLIED DRESSING PT HAS DRAINAGE COMING FROM [employer] ENGINEER PT TODAY AT [address] ADAMSON(SURGEON FOR FOLLOW-UP [id number] [address] IN [place], [place] PHONE IS [phone]. PT WAS GIVEN PAIN MEDICATION TWICE DURING SHIFT LAST DOSE GIVEN AT 0300 AND AFTERWARD PT SLEPLT REST OF NIGHT. WILL ENDORSE TO AM NURSE.
[2022-04-02 07:45] VITALS: BP 123/64
[2022-04-02] MEDS: MIRALAX 17 GM POWD.PACK PO SCH (09:00)
[2022-04-02] MEDS: ASPIRIN 81 MG TAB.CHEW PO SCH ×2 (09:50→20:58)
[2022-04-02] MEDS: GABAPENTIN 300 MG CAPSULE PO SCH ×3 (09:50→20:49)
[2022-04-02] MEDS: ZONISAMIDE 100 MG CAPSULE PO SCH ×2 (09:50→17:45)
[2022-04-02] MEDS: DOXYCYCLINE HYCLATE 100 MG TABLET PO SCH ×2 (09:50→20:48)
[2022-04-02] MEDS: METOPROLOL TARTRATE 25 MG TABLET PO SCH ×2 (09:51→17:00)
[2022-04-02] MEDS: ENSURE ENLIVE (VAN) 240 ML LIQUID PO SCH (09:51)
[2022-04-02] MEDS: ARGININE/GLUTAMINE/CALCIUM BMB 1 EACH POWD.PACK PO SCH ×2 (09:51→17:54)
[2022-04-02] MEDS: FLUTICASONE/VILANTEROL 1 EACH BLST.W.DEV INH SCH (09:56)
[2022-04-02] MEDS: OXCARBAZEPINE 300 MG TABLET PO SCH ×2 (09:56→17:45)
[2022-04-02] MEDS: REMEDY ESSENTIAL ZINC PASTE 113 GM TOP SCH ×2 (09:57→20:57)
--- NOTE | 2022-04-02 15:40 | NUR ---
Patient picked up by [facility] ambulance for follow up appointment with Dr. Garcia (surgeon). Patient denies any pain or discomfort at this time. Vital signs stable.
--- NOTE | 2022-04-02 17:30 | NUR ---
Patient back from appointment from Dr. Garcia with no new order.
--- NOTE | 2022-04-02 18:00 | NUR ---
Per patient she received a call from Dr. Garcia's office and that they scheduled her for appointment on Friday04/05/22 at 10 AM. manager social media made aware.
[2022-04-02 20:00] VITALS: BP 143/62
[2022-04-02] MEDS: PRAMIPEXOLE 0.25 MG TABLET PO SCH (20:48)
[2022-04-02] MEDS: MIRTAZAPINE 15 MG TABLET PO SCH (20:49)
[2022-04-03 04:00] VITALS: BP 95/59
--- NOTE | 2022-04-03 04:54 | NUR ---
AAOx4 No acute distress noted. VSS Needs attended. Patient had a left total knee revision. Left knee dressing changed as needed, has a wound along the the knee area with some bleeding noted. Patient to go back and see Dr Garcia on Friday (Apr 05) to reevaluate left knee dressing with wound drainage from knee. Pain meds given as needed with relief noted. Fall precautions maintained. Siderails up for safety. No acute distress noted.
[2022-04-03] MEDS: ACETAMINOPHEN 325 MG TABLET PO SCH ×3 (05:40→22:32)
[2022-04-03] MEDS: LEVOTHYROXINE SODIUM 112 MCG TABLET PO SCH (06:00)
[2022-04-03 08:06] VITALS: BP 125/59
[2022-04-03] MEDS: ASPIRIN 81 MG TAB.CHEW PO SCH ×2 (08:31→21:53)
[2022-04-03] MEDS: OXYCODONE HCL 5 MG TABLET PO PRN ×3 (08:32→21:47)
[2022-04-03] MEDS: GABAPENTIN 300 MG CAPSULE PO SCH ×3 (08:32→21:57)
[2022-04-03] MEDS: DOXYCYCLINE HYCLATE 100 MG TABLET PO SCH ×2 (08:32→21:58)
[2022-04-03] MEDS: FLUTICASONE/VILANTEROL 1 EACH BLST.W.DEV INH SCH (08:33)
[2022-04-03] MEDS: OXCARBAZEPINE 300 MG TABLET PO SCH ×2 (08:34→17:21)
[2022-04-03] MEDS: MIRALAX 17 GM POWD.PACK PO SCH (08:39)
[2022-04-03] MEDS: METOPROLOL TARTRATE 25 MG TABLET PO SCH ×2 (08:39→17:19)
[2022-04-03] MEDS: REMEDY ESSENTIAL ZINC PASTE 113 GM TOP SCH ×2 (08:46→22:00)
[2022-04-03] MEDS: ZONISAMIDE 100 MG CAPSULE PO SCH ×3 (09:06→17:20)
[2022-04-03] MEDS: ARGININE/GLUTAMINE/CALCIUM BMB 1 EACH POWD.PACK PO SCH ×2 (09:06→17:21)
[2022-04-03] MEDS: ENSURE ENLIVE (VAN) 240 ML LIQUID PO SCH (09:07)
--- NOTE | 2022-04-03 11:23 | NUR ---
WOUND CARE CONSULT/FOLLOW UP: PT SEEN FOR RE-EVALUATION OF LEFT LOWER EXTREMITY INCISION WITH WOUND TO KNEE. OPEN WOUND TO KNEE MEASURES 7CM X 5CM X UTD AND IS PARTLY RED IN COLOR BUT MAJORITY OF WOUND HAS BROWN NECROTIC TISSUE WITHOUT ODOR. DRAINAGE IS SEROSANGUINOUS/BROWN (SMALL AMOUNT). DISCUSSED WOUND TREATMENT PLAN WITH NURSING STAFF AND [facility] CURRENTLY ON CASE. PT TOLERATED DRESSING CHANGE WELL. MD IN AGREEMENT WITH PLAN OF CARE. PT TO FOLLOW UP WITH ORTHO SURGEON 04/05/22.
--- NOTE | 2022-04-03 11:47 | NUR ---
0730-Rec'd patient in bed, awake, alert and oriented, able to verbalize her needs and watching TV. at this time. No c/o pain, no respiratory distress noted. Safety measures and call light at reach. 0900-Scheduled medications administered as ordered, oral fluids taken well. Patient denies any GI discomfort. Continues eating breakfast. 1100-Wound care to left knee//leg incisions provided by wound nurse specialist (Blaire), new orders initiated, patient tolerated well procedure, denies chery, aseptic technique applied, affected areas were covered with DD; handled gently and carefully.
--- NOTE | 2022-04-03 15:47 | NUR ---
INTERDISCIPLINARY TEAM CONFERENCE
[2022-04-03 16:01] VITALS: BP 123/55
[2022-04-03 20:00] VITALS: BP 115/49
--- NOTE | 2022-04-03 20:00 | NUR ---
Received pt A//OX3.Denies any pain or discomfort at this time. V/S are within normal limits. Dressings on left knee and left leg are clean and dried. At 2207 pt was given 5m of oxicodone for pain on her left knee. Dressing on left knee and left are changed.then pt went ba.ck to sleep. Will continue to monitor pt during the shift.
[2022-04-03] MEDS: PRAMIPEXOLE 0.25 MG TABLET PO SCH (21:54)
[2022-04-03] MEDS: MIRTAZAPINE 15 MG TABLET PO SCH (21:58)
[2022-04-04] MEDS: OXYCODONE HCL 5 MG TABLET PO PRN ×3 (02:07→15:25)
[2022-04-04 04:00] VITALS: BP 116/48
[2022-04-04] MEDS: ACETAMINOPHEN 325 MG TABLET PO SCH ×3 (06:01→21:49)
[2022-04-04] MEDS: LEVOTHYROXINE SODIUM 112 MCG TABLET PO SCH (06:02)
--- NOTE | 2022-04-04 07:44 | NUR ---
0710-Rec'd patient in bed, upon shift exchange rounds noted patient awake, no respiratory distress/SOB/moaning or grimaces noted; skin pink, warm and dry to the touch, afebrile. Patient denies any pain/discomfort; dressing to left knee/leg intact. Call light at reach & safety measures in place.
[2022-04-04 07:54] VITALS: BP 108/69
[2022-04-04] MEDS: GABAPENTIN 300 MG CAPSULE PO SCH ×3 (08:59→21:14)
[2022-04-04] MEDS: ASPIRIN 81 MG TAB.CHEW PO SCH ×2 (08:59→21:13)
[2022-04-04] MEDS: ZONISAMIDE 100 MG CAPSULE PO SCH ×2 (08:59→18:35)
[2022-04-04] MEDS: METOPROLOL TARTRATE 25 MG TABLET PO SCH ×3 (09:00→18:41)
[2022-04-04] MEDS: MIRALAX 17 GM POWD.PACK PO SCH (09:00)
[2022-04-04] MEDS: FLUTICASONE/VILANTEROL 1 EACH BLST.W.DEV INH SCH (09:00)
[2022-04-04] MEDS: OXCARBAZEPINE 300 MG TABLET PO SCH ×2 (09:00→18:35)
[2022-04-04] MEDS: REMEDY ESSENTIAL ZINC PASTE 113 GM TOP SCH ×2 (09:01→21:15)
[2022-04-04] MEDS: ENSURE ENLIVE (VAN) 240 ML LIQUID PO SCH (09:02)
[2022-04-04] MEDS: ARGININE/GLUTAMINE/CALCIUM BMB 1 EACH POWD.PACK PO SCH ×2 (09:02→17:00)
[2022-04-04] MEDS: DOXYCYCLINE HYCLATE 100 MG TABLET PO SCH ×2 (09:05→21:13)
[2022-04-04 15:06] VITALS: BP 142/67
--- NOTE | 2022-04-04 18:46 | NUR ---
18:35-Patient came back from ortho appt. with Dr. Abdulaziz Elias M.D. covering for Dr. Garcia, per patient Dr. Abdulaziz Elias M.D. changed the dressing to left knee/leg and gave her another apt. for FridayApril 09 @ 10:00am at the [place] office. Per patient instructed her she had two choices: left knee/leg wound needs to be debrided either by the wound nurse at current location/[facility] or patient can go to the wound center and use the realty specialist there.. Ask patient for official orders/instructions given by Dr. Abdulaziz Elias M.D. but unable to provide. Unable to contact any personnel at Dr. Thakur's office due to off open hours. Endorsed appropriately for proper follow up.
[2022-04-04 20:00] VITALS: BP 142/54
[2022-04-04] MEDS: PRAMIPEXOLE 0.25 MG TABLET PO SCH (21:13)
[2022-04-04] MEDS: MIRTAZAPINE 15 MG TABLET PO SCH (21:14)
[2022-04-05] MEDS: OXYCODONE HCL 5 MG TABLET PO PRN ×5 (00:08→21:20)
[2022-04-05 04:00] VITALS: BP 131/90
[2022-04-05] MEDS: ACETAMINOPHEN 325 MG TABLET PO SCH ×3 (06:05→21:07)
[2022-04-05] MEDS: LEVOTHYROXINE SODIUM 112 MCG TABLET PO SCH (06:05)
[2022-04-05 07:27] VITALS: BP 134/50
[2022-04-05] MEDS: DOXYCYCLINE HYCLATE 100 MG TABLET PO SCH ×2 (08:33→20:24)
[2022-04-05] MEDS: ZONISAMIDE 100 MG CAPSULE PO SCH ×2 (08:38→17:31)
[2022-04-05] MEDS: REMEDY ESSENTIAL ZINC PASTE 113 GM TOP SCH ×2 (08:38→20:25)
[2022-04-05] MEDS: MIRALAX 17 GM POWD.PACK PO SCH (08:39)
[2022-04-05] MEDS: ARGININE/GLUTAMINE/CALCIUM BMB 1 EACH POWD.PACK PO SCH ×2 (08:40→17:00)
[2022-04-05] MEDS: ASPIRIN 81 MG TAB.CHEW PO SCH ×2 (08:40→20:25)
[2022-04-05] MEDS: GABAPENTIN 300 MG CAPSULE PO SCH ×3 (08:40→20:24)
[2022-04-05] MEDS: ENSURE ENLIVE (VAN) 240 ML LIQUID PO SCH (08:41)
[2022-04-05] MEDS: OXCARBAZEPINE 300 MG TABLET PO SCH ×2 (08:45→17:32)
[2022-04-05] MEDS: FLUTICASONE/VILANTEROL 1 EACH BLST.W.DEV INH SCH (08:53)
[2022-04-05 15:15] VITALS: BP 128/63
[2022-04-05] MEDS: METOPROLOL TARTRATE 25 MG TABLET PO SCH (17:00)
[2022-04-05] MEDS: MIRTAZAPINE 15 MG TABLET PO SCH (20:24)
[2022-04-05] MEDS: PRAMIPEXOLE 0.25 MG TABLET PO SCH (20:25)
[2022-04-05 21:01] VITALS: BP 111/54
[2022-04-06 04:10] VITALS: BP 129/69
--- NOTE | 2022-04-06 04:19 | NUR ---
AAOx3-4 Left knee dressing intact, wound left knee with minimal amount of drainage noted, has some necrotic areas along the edges of the left knee wound, gets dressings daily. LLE with a knee immobilizer intact. Pain meds given as needed. No acute distress noted.
[2022-04-06] MEDS: OXYCODONE HCL 5 MG TABLET PO PRN ×3 (05:06→20:10)
[2022-04-06] MEDS: ACETAMINOPHEN 325 MG TABLET PO SCH ×3 (05:07→21:14)
[2022-04-06] MEDS: LEVOTHYROXINE SODIUM 112 MCG TABLET PO SCH (06:02)
[2022-04-06 07:41] VITALS: BP 146/71
--- NOTE | 2022-04-06 07:45 | NUR ---
Rec'd patient in bed, awake, watching TV. On R/A, no respiratory distress noted. VSS, patient denies pain. Oral fluids offered and taken well, left extremity with cast in place. Safety measures in place and call light at reach.
[2022-04-06] MEDS: ZONISAMIDE 100 MG CAPSULE PO SCH ×2 (08:19→17:21)
[2022-04-06] MEDS: ASPIRIN 81 MG TAB.CHEW PO SCH ×2 (08:19→20:10)
[2022-04-06] MEDS: METOPROLOL TARTRATE 25 MG TABLET PO SCH ×2 (08:19→17:21)
[2022-04-06] MEDS: GABAPENTIN 300 MG CAPSULE PO SCH ×3 (08:19→20:10)
[2022-04-06] MEDS: OXCARBAZEPINE 300 MG TABLET PO SCH ×2 (08:20→17:21)
[2022-04-06] MEDS: DOXYCYCLINE HYCLATE 100 MG TABLET PO SCH ×2 (08:20→20:10)
[2022-04-06] MEDS: MIRALAX 17 GM POWD.PACK PO SCH (08:20)
[2022-04-06] MEDS: FLUTICASONE/VILANTEROL 1 EACH BLST.W.DEV INH SCH (08:21)
[2022-04-06] MEDS: ENSURE ENLIVE (VAN) 240 ML LIQUID PO SCH (09:11)
[2022-04-06] MEDS: ARGININE/GLUTAMINE/CALCIUM BMB 1 EACH POWD.PACK PO SCH ×2 (09:12→17:22)
[2022-04-06] MEDS: REMEDY ESSENTIAL ZINC PASTE 113 GM TOP SCH ×2 (09:12→20:11)
[2022-04-06 16:35] VITALS: BP 110/56
[2022-04-06] MEDS: PRAMIPEXOLE 0.25 MG TABLET PO SCH (20:10)
[2022-04-06] MEDS: MIRTAZAPINE 15 MG TABLET PO SCH (20:10)
[2022-04-06 21:25] VITALS: BP 104/52
[2022-04-07] MEDS: OXYCODONE HCL 5 MG TABLET PO PRN ×2 (00:38→07:35)
--- NOTE | 2022-04-07 01:58 | NUR ---
AAOx3-4 All needs attended. Left knee dressing intact with a knee immobilizer on. Pain meds given as needed. Relief noted. Continent of bowel and bladder. OOB to the BR with walker with standy assist. For discharge today. Will monitor patient. VSS.
[2022-04-07 04:35] VITALS: BP 129/57
[2022-04-07] MEDS: ACETAMINOPHEN 325 MG TABLET PO SCH ×2 (05:22→13:19)
[2022-04-07] MEDS: LEVOTHYROXINE SODIUM 112 MCG TABLET PO SCH (06:15)
[2022-04-07 07:43] VITALS: BP 142/60
[2022-04-07] MEDS: ASPIRIN 81 MG TAB.CHEW PO SCH (08:40)
[2022-04-07] MEDS: GABAPENTIN 300 MG CAPSULE PO SCH ×2 (08:40→13:19)
[2022-04-07] MEDS: ZONISAMIDE 100 MG CAPSULE PO SCH (08:40)
[2022-04-07] MEDS: DOXYCYCLINE HYCLATE 100 MG TABLET PO SCH (08:40)
[2022-04-07 08:41] VITALS: BP 142/60
[2022-04-07] MEDS: METOPROLOL TARTRATE 25 MG TABLET PO SCH (08:41)
[2022-04-07] MEDS: ARGININE/GLUTAMINE/CALCIUM BMB 1 EACH POWD.PACK PO SCH (08:42)
[2022-04-07] MEDS: FLUTICASONE/VILANTEROL 1 EACH BLST.W.DEV INH SCH (08:42)
[2022-04-07] MEDS: REMEDY ESSENTIAL ZINC PASTE 113 GM TOP SCH (08:42)
[2022-04-07] MEDS: ENSURE ENLIVE (VAN) 240 ML LIQUID PO SCH (08:42)
[2022-04-07] MEDS: OXCARBAZEPINE 300 MG TABLET PO SCH (08:53)
[2022-04-07] MEDS: MIRALAX 17 GM POWD.PACK PO SCH (08:53)
[2022-04-07] MEDS ORDERED: ACIDOPHILUS/BULGARICUS CHEW TAB GT SCH (09:00)
[2022-04-07] MEDS ORDERED: ACIDOPHILUS/BULGARICUS CHEW TAB PO SCH (09:00)
--- NOTE | 2022-04-07 15:00 | NUR ---
patient discharged home, picked up by ambulance, teaching provided about each medication, patient verbalized understanding of it, ID removed, no IV access, left knee dressing done, instructions sent with patient for wound care for home health. patient is alert, oriented x4, no acute distress noted. Addendum: 04/07/22 at 1529 by RIMA HAGAN RN, RN teaching provided for follow up with surgeon, patient understood. written instructions given as well. Addendum: 04/07/22 at 1907 by RIMA HAGAN RN, RN patient discharged, no other skin issues noted, except left knee.belongings sent with patient.
== END 2022-04-07 15:00 | disposition home health service (06) | DRG 950 ==
LOC: MEDSURG3 01:15
PROVIDERS: ADMIT Physical Medicine & Rehabilitation Pain Medicine; ATTEND Physical Medicine & Rehabilitation Pain Medicine
DX: T84.54XD Infection and inflammatory reaction due to internal left knee prosthesis, subsequent encounter (principal); Z96.652 Presence of left artificial knee joint; E03.9 Hypothyroidism, unspecified; F32.A Depression, unspecified; G40.909 Epilepsy, unspecified, not intractable, without status epilepticus; I10 Essential (primary) hypertension; J44.9 Chronic obstructive pulmonary disease, unspecified; R53.1 Weakness; G89.29 Other chronic pain; M10.9 Gout, unspecified; S82.202D Unspecified fracture of shaft of left tibia, subsequent encounter for closed fracture with routine healing; S82.402D Unspecified fracture of shaft of left fibula, subsequent encounter for closed fracture with routine healing; W19.XXXD Unspecified fall, subsequent encounter; Z88.1 Allergy status to other antibiotic agents; Z88.0 Allergy status to penicillin; Z88.8 Allergy status to other drugs, medicaments and biological substances
CPT/HCPCS: 36415; 73560; 83735; 84100; 84443; 85025; 97535-GO-CO; A4663; A6209; J7040; J8499